=== PATIENT | male | born 1950 | race Two or more races ===

== ENCOUNTER → 2019-10-27 08:00 | Outpatient (CLI) | payer OTHER ==
[~2019-10-27 08:00] MED LIST: ADULT LOW DOSE81 M1 PO; COZAAR100 MG PO; DURACHOL 3,7751 EACH PO; FINASTERIDE5 MG PO; FOLIC ACID PO; LEVODOPA25 GM PO; TAMS0.4C PO; [UNRECOGNIZED DRUG - OTHER] PO
== END | disposition home or self-care (01) ==
LOC: LAB 08:00 → ADM 11:15 → CIR.AMB 11-03 11:15 → EDSTATUS 11-03 11:15 → CIR.AMB 11-03 12:00
PROVIDERS: ATTEND Surgery
DX: E21.0 Primary hyperparathyroidism (principal); Z01.810 Encounter for preprocedural cardiovascular examination